=== PATIENT | male | born 1960 | race Caucasian/White ===

== ENCOUNTER → 2021-09-09 | Outpatient (CLI) | payer BC ==
[~2021-09-09] MED LIST: BELVIQ10 MG PO; MULTIVITAMINS1 EAC1 PO; NORCO 7.5-3251 EACH PO; VITAMIN B12-FO1 EACH PO
== END ==
LOC: MRI 08:30
DX: H90.3 Sensorineural hearing loss, bilateral (principal); H93.13 Tinnitus, bilateral
CPT/HCPCS: 36415; 70553; 82565; A9577